=== PATIENT | male | born 1955 | race Caucasian/White ===

== ENCOUNTER → 2023-11-28 06:37 | Day surgery (SDC) | payer OTHER, SELFPAY | LOC: GI 06:37 | PROVIDERS: ATTENDING PHYSICIAN Internal Medicine | DX: Z12.11 Encounter for screening for malignant neoplasm of colon (principal); Z86.010 Personal history of colon polyps; D12.3 Benign neoplasm of transverse colon; D12.5 Benign neoplasm of sigmoid colon | CPT/HCPCS: 45385; 45380; 88305 ==

== ENCOUNTER 2024-05-17 14:22 | Observation (INO) | payer OTHER, SELFPAY ==
[2024-05-17] VITALS (7 sets, daily range): BP systolic 97–135; BP diastolic 58–87; BMI 34.8; BMI 34.3
[2024-05-17 12:09] LABS: % Basophils 0.4 % (0-2); % Eosinophils 3.7 % (0-6); % Immature Granulocytes 0.2 % (0-0.5); % Lymphocytes 24.8 % (20.5-51.1); % Monocytes 8.9 % (1.7-9.3); Absolute Eosinophils 0.2 10^3/uL (0-0.7); Absolute Lymphocytes 1.3 10^3/uL (1.2-3.4); Absolute Monocytes 0.5 10^3/uL (0.1-0.6); Absolute Neutrophils 3.4 10^3/uL (1.4-6.5); Hematocrit 40.2 % (39.0-52.0); Hemoglobin 14.4 g/dL (13.0-18.0); Mean Corp Hgb Conc. 35.8 g/dL (33.0-37.0); Mean Corpuscular Hgb 31.9 pg (27.0-31.0); Mean Corpuscular Volume 88.9 fL (80.0-94.0); Mean Platelet Volume 10.6 fL (7.4-10.4); Nucleated Red Blood Cells % 0 % (-); Platelet Count 205 10^3/uL (130-400); Red Blood Cell Count 4.52 10^6/uL (4.70-6.10); Red Cell Dist. Width 12.6 % (11.5-14.5); White Blood Cell Count 5.4 10^3/uL (4.8-10.8)
[2024-05-17 12:20] LABS: INR 1.09; PT 14.1 Sec (11.4-14.6)
--- NOTE | 2024-05-17 12:22 | ED.GENMED ---
History of Present Illness
General
Chief Complaint: Swelling
Source: patient
Time Seen by Provider: 05/17/24 11:38
History of Present Illness
History of Present Illness:
69yoM with a history of coronary artery disease, atrial fibrillation, aortic valve and root repair, hyperlipidemia, and hypothyroidism presenting for evaluation of an abnormal outpatient ultrasound. Patient has been having left arm swelling for
about a week. He was sent for an outpatient venous duplex this morning which revealed an occlusive thrombus in the mid left subclavian vein at the site of indwelling cardiac pacemaker leads. Patient was sent to the ED for evaluation. He is
otherwise asymptomatic and denies any chest pain, shortness of breath, syncope. Of note, patient was told that he could discontinue his Eliquis recently for his afib. He has been weaning himself off the afib and has been taking Eliquis 2.5mg BID.
His last dose of Eliquis was 2 days ago.
Past History
Past History
ED Past Medical History: CAD and HTN
ED Past Surgical History: Cardiac (Valve replacement, CABG) and Orthopedic
Social History
Tobacco: Other (Occasional cigarette)
Alcohol: Occasional
Personal:
Living: with family
Employment: Employed
Phy Exam
General Physical Exam
General Presentation: well appearing and no apparent distress
General age: appears stated age
General Skin: warm and dry
General Habitus: normal
General Mental: alert
Cardiovascular Exam
Cardiovascular Exam: regular rate/rhythm
Pulmonary Exam
Pulmonary Exam: lungs clear, no respiratory distress, no crackles and no wheezing
Musculoskeletal Exam
Musculoskeletal Exam: other (+LUE swelling noted. 2+ radial pulse. Motor and sensation intact. )
Skin Exam
Skin Exam: normal color and warm/dry
Psychiatric Exam
Psychiatric Exam: normal mood/affect
Scores
Heart Failure Risk
Heart Failure Risk Score: Not Applicable
Course
Orders/Labs/Results
Orders:
Orders
05/17/24 11:49
Heparin 8,800 units IV NOW STA
Nursing to Place Non Medication Order As Directed
Physician Order: PTT 6 hours after initial start of Heparin infusion
05/17/24 11:52
Complete Blood Count/With Diff Urgent
Comprehensive Metabolic Panel Urgent
PTT Urgent
Prothrombin Time Urgent
05/17/24 12:00
Heparin 17640 Units/250 ml 25,000 units in 250 ml IV PER PROTOCOL
Weight to be used for heparin protocol in kilograms (kg):: 110
Protocol:: DVT/PE
PTT Goal Range to be used:: PTT 73 to 111 seconds
Order type:: Initial
INITIAL Infusion Dose (UNITS/KG/hr) & then follow protocol:: 18 units/kg/hr
Infusion Dose in UNITS/hr & then follow protocol (UNITS/hr):: 2,000
INFUSION RATE in mL/hr & then follow protocol (mL/hr):: 20
For DVT/PE algorithm, re-bolus for low PTT?: Yes
PTT less than or equal to 64 seconds:: Re-bolus 80 units/kg (max 10,000units). Increase by 400 units/hr
(+ 4mL/hr)
PTT 64.1 to 72.9 seconds:: Re-bolus 40 units/kg (max 5,000 units). Increase by 200 units/hr
(+ 2mL/hr)
PTT 73 to 111 seconds:: Target Range. No change in rate.
PTT 111.1 to 130.9 seconds:: Decrease rate by 200 units/hr (- 2 mL/hr)
PTT 131 to 199.9 seconds:: HOLD for 1 hr. Then decrease by 300 units/hr (- 3mL/hr)
PTT greater than or equal to 200 seconds:: HOLD for 2 hrs & Notify Provider. Then decrease by 400 units/hr
(- 4mL/hr)
Lab follow-up:: Each change, PTT q6h until 2 consecutive are therapeutic. Then
PTT daily.
05/17/24 12:32
Heparin 8,800 units IV PRN PRN
05/17/24 12:33
Heparin 4,400 units IV PRN PRN
05/17/24 13:52
Apixaban [Eliquis] 10 mg PO ONCE ONE
05/17/24 14:12
Admit/Transfer Patient As Directed
Co-Sign Provider:
Level of Care: Observation services
Assign to:: Telemetry
Physician / Group: Jan Galvin
Diagnosis: Left subclavain vein thrombus
Reason for Telemetry: Pacer lead- non dependent
Date to Stop Telemetry: 05/19/24
Time to Stop Telemetry: 11:00
Reason for Hospitalization: Left subclavain vein thrombus
PRN Pain Medication Management As Directed
May give lesser potent ordered pain med per pt: Yes
preference::
Protocol:: Medication orders for pain may be administered in a
manner that supports deferring to patient preference
when the pt is:
- Requesting an ordered lesser potent pain medication.
Least to most potent pain medications are defined
as: acetaminophen < NSAID < tramadol < opioids
(morphine, oxycodone, hydromorphone).
- Requesting a lesser dose of the same medication IF
ORDERED.
- Requesting a less intrusive route of administration
if both routes are prescribed by the provider (PO <
IV).
05/17/24 14:14
Code Status As Directed
Resuscitation Status: Full Code
05/17/24 20:00
Apixaban [Eliquis] 10 mg PO BID
05/19/24 11:00
DC Protocol for Telemetry ONCE
Abnormal Lab Results
05/17/24
11:52
RBC 4.52 L 10^6/uL
(4.70-6.10)
MCH 31.9 H pg
(27.0-31.0)
MPV 10.6 H fL
(7.4-10.4)
Glucose 108 H mg/dl
(70-99)
05/17/24 11:52
05/17/24 11:52
Vital Signs
Initial and Last Documented VS:
Initial Vital Signs
Temp Pulse Resp BP Pulse Ox
98.3 F 65 18 130/87 97
05/17/24 11:20 05/17/24 11:20 05/17/24 11:20 05/17/24 11:20 05/17/24 11:20
Last Documented Vital Signs
Temp Pulse Resp BP Pulse Ox
98.3 F 87 32 115/83 96
05/17/24 11:20 05/17/24 14:00 05/17/24 14:00 05/17/24 14:00 05/17/24 14:00
MDM/Problems Addressed
Differential Diagnosis Includes:
69yoM here for a subclavian thrombus seen on outpatient vascular ultrasound. Has been having L arm swelling x 1 week. Recently stopped Eliquis. He is afebrile and hemodynamically stable. He is well appearing in no distress. Left arm edema noted on
exam. Differential diagnosis includes but is not limited to: DVT, failure of Eliquis
Initial ED plan: Check CBC, CMP, coags. Will initiate on a heparin gtt.
*Critical Care Note
Total Time (30-74mins, 75-104mins- exclusive of procedures): Not Applicable
Update Note
Update Note:
I discussed case with hospitalist to admit patient. Hospitalist requesting cardiology consult. Patient evaluated by parts professional at bedside, Dr. Luz, who recommends transitioning to PO Eliquis 10mg BID. Patient admitted for further management.
ED Attending Note
-
Portions of this chart may have been created with voice recognition software.� Occasional wrong word or��sound alike� substitutions may have occurred due to the inherent limitations of voice recognition software.
Discharge Plan
Departure
Patient Disposition: Admit
Date of Disposition: 05/17/24
Time of Disposition: 12:27
Presentation/result/management discussed w/ accepting MD/DO: Hospitalist
Discharge Problem:
Acute thrombosis of left subclavian vein
Interventions
Interventions:
*Risk Screen - Suicide Last Done: 05/17/24 11:20
*General Assessment Last Done: 05/17/24 11:20
*Neglect/Abuse Screening Last Done: 05/17/24 11:20
ED- Fall Risk Assessment Last Done: 05/17/24 11:44
*ED COVID-19 Vaccine History Last Done: 05/17/24 11:40
ED- Cardiac Assessment Last Done: 05/17/24 11:40
ED- Pulmonary Assessment Last Done: 05/17/24 11:40
ED-Skin Assessment Last Done: 05/17/24 11:40
[2024-05-17 12:33] LABS: ALT (SGPT) 29 U/L (0-50); AST (SGOT) 27 U/L (17-59); Albumin 4.3 g/dl (3.5-5.0); Alkaline Phosphatase 69 U/L (38-126); Blood Urea Nitrogen 17 mg/dl (9-20); Calcium 8.8 mg/dl (8.4-10.2); Carbon Dioxide 23 mmol/L (22-30); Chloride 103 mmol/L (98-107); Estimated Creatinine Clearance 71 ml/min; Glucose 108 mg/dl (70-99); Potassium 4.2 mmol/L (3.5-5.1); Sodium 139 mmol/L (135-145); Total Bilirubin 0.6 mg/dl (0.2-1.3); Total Protein 6.7 g/dl (6.3-8.2); eGFR > 60.00
[2024-05-17] MEDS: HEPARIN 8800 UNITS IV (12:39)
[2024-05-17] MEDS: HEPARIN 25000 UNITS/250 ML IV (12:40)
[2024-05-17] MEDS: ELIQUIS 10 MG PO ×2 (13:56→20:52)
--- NOTE | 2024-05-17 14:14 | CON.CAR ---
Consultation
Consultation Request
Date/Time Consultation Requested: 05/17/24, 1230pm
Date/Time Consultation Performed: 05/17/24, 1pm
Requesting Provider: Rohini
Performing Provider: Sukh
Reason for Consultation: DVT
Medical History
-
Chief Complaint: left arm edema
History of Present Illness:
69 yo male with PMH of CAD, aortic valve stenosis, s/p CABG/AVR/root 2006, then redo bio-AVR 2021 for severe AR of bioprosthetic valve, post op A fib (paroxysmal), then post op PPM, HTN, hyperlipidemia presents to ED with left arm swelling since
evening. 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 He started taking 2.5mg bid for the last 40 days then stopped it a couple days ago.
No chest pain, SOB, syncope, dizziness.
At urgent care, he underwent Doppler, which showed occlusive thrombus of mid left subclavian vein at the site of indwelling cardiac pacemaker leads.
Past Medical History
Past Medical History: Arrhythmias (paroxysmal Afib), CAD, HTN, Hypercholesterolemia, Hypothyroidism and Valvular Disease (aortic)
Past Surgical History: Cardiac (CABG/AVR/aortic root 2006; then redo bio-AVR 2021 (Dr Abran Lezama))
Social History
Tobacco: Former Smoker (quit 2004)
Living: With Family
Family History
Family History: Early CAD (none)
Allergies / Home Medications
Allergy/AdvReac Type Severity Reaction Status Date / Time
acetaminophen [From Percocet] Allergy Itching Verified 02/13/22 02:43
oxycodone [From Percocet] Allergy Itching Verified 02/13/22 02:43
�Medication �Instructions �Recorded �Confirmed �Type
bimatoprost 0.01 % eye drops 1 drp BOTH EYES HS Eye condition 02/13/22 05/17/24 History
(Vielka) ##0
brimonidine 0.1 % eye drops 1 drp BOTH EYES BID Eye condition 02/13/22 05/17/24 History
(Alphagan P) ##0
ezetimibe 10 mg tablet (Zetia) 10 mg PO HS High cholesterol 02/13/22 05/17/24 History
levothyroxine 25 mcg tablet 37.5 mcg PO DAILY Thyroid 02/13/22 05/17/24 History
furosemide 40 mg tablet 40 mg PO DAILY #30 tabs 02/16/22 05/17/24 Rx
ascorbic acid (vitamin C) 500 mg 500 mg PO DAILY 05/17/24 05/17/24 History
tablet (Vitamin C)
aspirin 325 mg tablet 325 mg PO BID 05/17/24 05/17/24 History
dorzolamide 22.3 mg-timolol 6.8 1 drp BOTH EYES BID 05/17/24 05/17/24 History
mg/mL eye drops
ibuprofen 200 mg tablet (Advil) 400 mg PO Q6HPRN PRN mild pain 05/17/24 05/17/24 History
rosuvastatin 10 mg tablet 10 mg PO HS 05/17/24 05/17/24 History
valsartan 40 mg tablet 40 mg PO QPM 05/17/24 05/17/24 History
Review of Systems
-
All other systems: Negative unless noted
Musculoskeletal: Edema (LUE)
Physical Exam
Vital Signs
Temp Pulse Resp BP Pulse Ox
98.3 F 87 32 115/83 96
05/17/24 11:20 05/17/24 14:00 05/17/24 14:00 05/17/24 14:00 05/17/24 14:00
Lab Results
05/17/24 11:52
05/17/24 11:52
Physical Exam
General: Well Developed, Well Nourished and No Apparent Distress
HEENT: Normocephalic and Anicteric
Respiratory: Clear and Non Labored Respirations
Cardiac: S1/S2 (normal), Regular Rhythm, Murmur (none), Peripheral Edema (1+ LUE) and JVD (none)
GI: Soft, Non Tender and Non Distended
Musculoskeletal: No Clubbing, No Cyanosis and Edema (1+ LUE)
Skin: Warm and Dry
Neuro: AO x 3
Psych: Calm
Impression / Plan
-
69 yo male with PMH of CAD, aortic valve stenosis, s/p CABG/AVR/root 2006, then redo bio-AVR 2021 for severe AR of bioprosthetic valve, post op A fib (paroxysmal), then post op PPM, HTN, hyperlipidemia presents to ED with left arm swelling since
evening. 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 He started taking 2.5mg bid for the last 40 days then stopped it a couple days ago.
At urgent care, he underwent Doppler, which showed occlusive thrombus of mid left subclavian vein at the site of indwelling cardiac pacemaker wires.
# LUE DVT, acute, associated with PPM wires
-discussed with EP
-transition heparin drip to eliquis 10mg bid for 7 days, then 5mg bid after
-can stop ASA
-EKG, echo
-observe for improvement of symptoms
# CAD/CABG: chronic, stable
# bio-AVR x2: chronic, stable
# HTN: chronic, stable; continue ARB
# Hyperlipidemia: chronic, stable; continue statin
Data Reviewed
-
Ultrasound: Report Reviewed by me (LUE DVT)
Labs: Labs Reviewed by me
--- NOTE | 2024-05-17 14:22 | HPS.HSE ---
Family Physician
-
Family Physician: Hubert Smith
Chief Complaint
-
left arm swelling/pain
History of Present Illness
Patient is a 69-year-old male with past medical history of coronary disease with CABG x 2, post op afib, history of bicuspid aortic valve/aortic stenosis post bioprosthetic aortic valve replacement, hyperlipidemia, hypothyroidism, obesity, history
of right rotator cuff injury, former smoker came to ER for having new onset of left arm pain and swelling. This started approximately 1 week back and slowly progressed over last few days. Patient had an outpatient ultrasound done of left upper
extremity which showed a small segment of subclavian vein clot where pacemaker wire was present. Patient came to ER for further evaluation of this.
Patient denies having any associated chest discomfort/shortness of breath/palpitations/presyncops.Denies having a previous history of DVT or PE. Patient has history of post cardiac surgery A-fib for which patient was maintained on Eliquis and which
has been stopped approximately 1 month back by primary [facility] CTS. patient was in process of weaning himself off of Eliquis and transitioning to aspirin.
No abominal/ complains.
Medical History
Past Medical History
Past Medical History: Reports Other
Additional Past Medical History:
coronary disease with CABG x 2, post op afib, history of bicuspid aortic valve/aortic stenosis post bioprosthetic aortic valve replacement, hyperlipidemia, hypothyroidism, obesity, history of right rotator cuff injury, former smoker
Past Surgical History: Reports Other
Social History
Tobacco: Former Smoker
Alcohol: Occasional
Drug: None
Personal:
Living: With Family
Family History
Family History: Not pertinent
Allergies / Home Medications
Allergies reflects when Allergies were last updated in [employer].
Home Medications with original date entered in [employer]
Allergy/Medication List:
Allergies
Allergy/AdvReac Type Severity Reaction Status Date / Time
acetaminophen [From Percocet] Allergy Itching Verified 02/13/22 02:43
oxycodone [From Percocet] Allergy Itching Verified 02/13/22 02:43
Home Medications
bimatoprost 0.01 % eye drops (Lumigan) 1 drp BOTH EYES HS Eye condition ##0 02/13/22
brimonidine 0.1 % eye drops (Alphagan P) 1 drp BOTH EYES BID Eye condition ##0 02/13/22
ezetimibe 10 mg tablet (Zetia) 10 mg PO HS High cholesterol 02/13/22
levothyroxine 25 mcg tablet 37.5 mcg PO DAILY Thyroid 02/13/22
furosemide 40 mg tablet 40 mg PO DAILY #30 tabs 02/16/22
ascorbic acid (vitamin C) 500 mg tablet (Vitamin C) 500 mg PO DAILY 05/17/24
aspirin 325 mg tablet 325 mg PO BID 05/17/24
dorzolamide 22.3 mg-timolol 6.8 mg/mL eye drops 1 drp BOTH EYES BID 05/17/24
ibuprofen 200 mg tablet (Advil) 400 mg PO Q6HPRN PRN mild pain 05/17/24
rosuvastatin 10 mg tablet 10 mg PO HS 05/17/24
valsartan 40 mg tablet 40 mg PO QPM 05/17/24
Review of Systems
-
A 12 point ROS was completed and negative except as noted: Yes
Physical Exam
Vital Signs
Vital Signs
Temp Pulse Resp BP Pulse Ox
98.3 F 87 32 115/83 96
05/17/24 11:20 05/17/24 14:00 05/17/24 14:00 05/17/24 14:00 05/17/24 14:00
Physical Exam
General: Well Developed, Well Nourished and No Apparent Distress
HEENT: NormoCephalic, Moist mucous membranes and Atraumatic
Respiratory: Clear
Cardiac: S1/S2 and Regular Rhythm; No Murmur or Rub
GI: Soft, Non Tender, Non Distended and Normal Bowel Sounds; No Organomegaly
Rectal: Deferred by Provider
Musculoskeletal: No Clubbing, No Cyanosis, No Edema and Other (Left upper ext swelling )
Skin: No Rash
Neuro: Nonfocal/grossly intact
Laboratory Results
-
05/17/24 11:52
05/17/24 11:52
Laboratory Results
PT 14.1 Sec (11.4-14.6) 05/17/24 11:52
INR 1.09 05/17/24 11:52
APTT 31.0 Sec (23.4-35.0) 05/17/24 11:52
Total Bilirubin 0.6 mg/dl (0.2-1.3) 05/17/24 11:52
AST 27 U/L (17-59) 05/17/24 11:52
ALT 29 U/L (0-50) 05/17/24 11:52
Alkaline Phosphatase 69 U/L (38-126) 05/17/24 11:52
Data Reviewed
-
Diagnostic Radiology: Image Personally Visualized and interpreted, Discussed with Patient and Discussed with Family
Lab Data: Labs Reviewed by me, Discussed with Patient and Discussed with Family
Impression/Plan
-
1. Left subclavian thrombus at pacemaker wire site
-Patient had left upper extremity ultrasound showing small segment of subclavian vein occlusive thrombus her cardiac pacemaker lead wires were seen.
-Patient weaned himself off of Eliquis after discussion with cardiothoracic surgeon at [facility]
-Cardiology evaluated patient in ER and will be started back on loading dose of Eliquis
-Heparin drip to be discontinued
-Patient will have repeat echocardiogram tomorrow
-Monitor overnight on telemetry
2. Post-op Afib
-Patient had post bypass brief run of A-fib
-Currently pacer dependent
3. Hypothyroidism
-Continue levothyroxine
coronary disease with CABG x 2
history of bicuspid aortic valve/aortic stenosis post bioprosthetic aortic valve replacement
hyperlipidemia
obesity
history of right rotator cuff injury
Former smoker
DVT PPX - eliquis
Full code
Total time spent : 77 mins
I personally saw and examined the patient.
I have reviewed all diagnostic interpretations and treatment plans as written.
Time includes patient management by me, time spent at the patients bedside, time to review lab and imaging results, discussing patient care, documentation in the medical record, and time spent with the family or caregiver and discussing care plan
with RN/Consultants.
[2024-05-17] MEDS: DIOVAN 40 MG PO (17:18)
[2024-05-17] MEDS: ZETIA 10 MG PO (20:52)
[2024-05-17] MEDS: CRESTOR 10 MG PO (20:52)
[2024-05-17] MEDS: NON-FORMULARY ITEM 1 DROP BOTH EYES ×2 (20:53)
[2024-05-18 03:00] VITALS: BP 120/70
[2024-05-18] MEDS: SYNTHROID 37.5 MCG PO (05:44)
[2024-05-18 06:00] VITALS: BMI 33.9
[2024-05-18 07:45] VITALS: BP 119/73
--- NOTE | 2024-05-18 08:24 | W.PN.CD ---
Today's Communication / Plan
-
continue eliquis 10mg bid for 7 days, then 5mg bid after
[facility] EP will call him for follow up
Impression / Plan
-
69 yo male with PMH of CAD, aortic valve stenosis, s/p CABG/AVR/root 2006, then redo bio-AVR 2021 for severe AR of bioprosthetic valve, post op A fib (paroxysmal), then post op PPM, HTN, hyperlipidemia presents to ED with left arm swelling since
evening. 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 He started taking 2.5mg bid for the last 40 days then stopped it a couple days ago.
At urgent care, he underwent Doppler, which showed occlusive thrombus of mid left subclavian vein at the site of indwelling cardiac pacemaker wires.
# LUE DVT, acute, associated with PPM wires
-discussed with EP here and at [facility], where his device is managed
-continue eliquis 10mg bid for 7 days, then 5mg bid after
-echo and device check are normal
-[facility] EP will call him for follow up
# CAD/CABG: chronic, stable
# bio-AVR x2: chronic, stable
# HTN: chronic, stable; continue ARB
# Hyperlipidemia: chronic, stable; continue statin
Physical Exam
Vital Signs/Labs
Vital Signs
Temp Pulse Resp BP Pulse Ox
98 F 57 18 119/73 97
05/18/24 07:45 05/18/24 07:45 05/18/24 07:45 05/18/24 07:45 05/18/24 07:45
05/17/24 05/18/24 05/19/24
06:59 06:59 06:59
Actual Weight 107.048 kg
PT 14.1 Sec (11.4-14.6) 05/17/24 11:52
INR 1.09 05/17/24 11:52
APTT 31.0 Sec (23.4-35.0) 05/17/24 11:52
Physical Exam
Constitutional: No acute distress and Comfortable
EENT: Moist mucous membranes
Cardiovascular: Rhythm & rate is regular, Pedal edema is absent, JVD pressure is normal and Systolic murmur absent
Respiratory: Respiratory effort normal and Lungs clear to auscul.
GI: Soft, Distention absent and Flat
Neuro/Psych: AO x 3
Data Reviewed
-
Date of Service: May 18, 2024
EKG: Ordered by me and Other (tele: occasional A paced, V sense; PVC's)
Echo: Report Reviewed by me
Labs: Labs Reviewed by me
--- NOTE | 2024-05-18 08:36 | W.PN.HOSP.TC ---
Today's Communication/Plan
-
d/c home
Assessment / Plan
Assessment / Plan
1. Left subclavian thrombus at pacemaker wire site
-Patient had left upper extremity ultrasound showing small segment of subclavian vein occlusive thrombus her cardiac pacemaker lead wires were seen.
-Patient weaned himself off of Eliquis after discussion with cardiothoracic surgeon at [facility]
-Repeat echocardiogram did not show any acute abnormality.
-Patient will be transition to oral Eliquis therapy.
-Patient cleared by cardio for discharge, follow-up with [facility] promotion writer postdischarge
2. Post-op Afib
-Patient had post bypass brief run of A-fib
-Currently pacer dependent
3. Hypothyroidism
-Continue levothyroxine
coronary disease with CABG x 2
history of bicuspid aortic valve/aortic stenosis post bioprosthetic aortic valve replacement
hyperlipidemia
obesity
history of right rotator cuff injury
Former smoker
DVT PPX - eliquis
Full code
More than 30 minutes spent in discharge including
Final examination of the patient
Summarizing hospital stay
Instructions for continuing care to all relevant caregivers
Preparation of discharge records, prescriptions, and referral forms
Total time spent (in minutes): 38 mins
Anticipated Discharge: Today
Subjective/Interval History
-
Date of Service: May 18, 2024
resting comfortably
no complains overnight
Objective Data
-
Labs:
Laboratory Results
05/18/24
06:00
WBC Pending
Hgb Pending
Hct Pending
Plt Count Pending
Sodium Pending
Potassium Pending
Chloride Pending
Carbon Dioxide Pending
BUN Pending
Creatinine Pending
Glucose Pending
Calcium Pending
Vital Signs:
Vital Signs
Temp Pulse Resp BP Pulse Ox
98 F 57 18 119/73 97
05/18/24 07:45 05/18/24 07:45 05/18/24 07:45 05/18/24 07:45 05/18/24 07:45
Review of Systems
-
Respiratory: Reports No Symptoms
Cardiac: Reports No Symptoms
Abdomen/GI: Reports No Symptoms
Physical Exam
-
General: No Apparent Distress and Comfortable
HEENT: Negative Oxygen
Respiratory: Clear to Auscultation
Cardiac: Regular Rhythm and S1/S2; Negative Murmur or Rub
GI: Soft, Nontender, Nondistended and Normal Bowel Sounds
Musculoskeletal: No Edema
Neuro: Awake, Alert, Oriented, No Motor Deficits and Nonfocal/Grossly Intact
Psych: Calm
[2024-05-18] MEDS: VITAMIN C 500 MG PO (09:10)
[2024-05-18] MEDS: LASIX 40 MG PO (09:10)
[2024-05-18] MEDS: NON-FORMULARY ITEM 1 DROP BOTH EYES (09:10)
[2024-05-18] MEDS: ELIQUIS 10 MG PO (09:10)
--- NOTE | 2024-05-18 09:44 | CM ---
Patient seen, patient for discharge today. Patient confirms he resides with his in a two story home, no steps to enter. Patient denies DME, VN, or SNF history. Patient PCP Franklyn Segal, [facility] in [place]. Patient confirms prescription
coverage. Patient denies any needs upon discharge, reports his will provide transportation home. KRAUS reviewed, signed, placed in chart. CM will continue to follow for all discharge planning needs.
Plan; home no needs, to transport home.
[2024-05-18 09:49] LABS: Hematocrit 44.2 % (39.0-52.0); Hemoglobin 15.5 g/dL (13.0-18.0); Mean Corp Hgb Conc. 35.1 g/dL (33.0-37.0); Mean Corpuscular Hgb 32.7 pg (27.0-31.0); Mean Corpuscular Volume 93.2 fL (80.0-94.0); Mean Platelet Volume 10.9 fL (7.4-10.4); Platelet Count 190 10^3/uL (130-400); Red Blood Cell Count 4.74 10^6/uL (4.70-6.10); Red Cell Dist. Width 12.6 % (11.5-14.5); White Blood Cell Count 5.2 10^3/uL (4.8-10.8)
[2024-05-18 10:28] LABS: Blood Urea Nitrogen 15 mg/dl (9-20); Calcium 9.1 mg/dl (8.4-10.2); Carbon Dioxide 29 mmol/L (22-30); Chloride 102 mmol/L (98-107); Estimated Creatinine Clearance 70 ml/min; Glucose 127 mg/dl (70-99); Potassium 4.5 mmol/L (3.5-5.1); Sodium 143 mmol/L (135-145); eGFR > 60.00
--- NOTE | 2024-05-18 14:14 | W.DCSUMMARY ---
Discharge Summary
Discharge Data
Date of Admission: 05/17/24
Date of Discharge: 05/18/24
-
Pending Results: No
Hospital Course
Discharging Physician : Dr Jan Galvin
Disposition : Home
Primary care physician : Dr Hubert Smith
Principal Discharge diagnosis :
Left subclavian vein thrombus
Chronic Discharge diagnosis :
Postoperative A-fib
Hypothyroidism
Coronary artery disease with history bypass
Hyperlipidemia
History of bicuspid aortic valve/aortic stenosis post bioprosthetic aortic valve replacement
Obesity
History of right rotator cuff injury
Former smoker
Hospital Course :
Patient is a 69-year-old male with a past medical history was sent to ER after found to having left subclavian vein short segment thrombus. Patient was not Eliquis with history of postop A-fib in the past and was taken off with primary cardiology.
Patient started to noticing new left upper extremity swelling and had an outpatient ultrasound on the day of ER visit showing a new left subclavian vein thrombus. Pacemaker wire were juxtapositioned. Patient was alerted by cardiology and was
planned to be monitored overnight. Patient was started back on oral Eliquis loading. Follow-up echocardiogram did not show any acute abnormality. Patient was discharged to home at this point with plan to follow-up with primary cardiology at [facility].
Important imaging findings :
None
Procedure findings :
None
Discharge Plan
-
Patient Disposition: Home (Routine Discharge)
Discharge Diagnosis/Procedures: Left subclavian vein clot
Condition: Fair
Diet: Regular
Activity: As tolerated
Driving Restrictions: No driving for 24 hours
Bathing Restrictions: OK to Shower
Activity Restrictions/Additional Instructions:
Please follow up with your EP medicare interviewer at [facility].
Referrals:
Hubert Smith, DO [Family Provider] - in one week
Additional Discharge Medication Instructions: STOP aspirin, Avoid NSAID use as have increased bleeding risk with eliquis use.
Prescriptions:
New
Eliquis 5 mg tablet
See Rx Instructions .ROUTE .COMPLEX Qty: 70 0RF
Rx Instructions:
Take 2 Tablet Twice daily for 6 Days THEN
Take 1 Table Twice daily for maintenance
1st month supply
Eliquis 5 mg tablet
5 mg PO BID Qty: 60 1RF
Rx Instructions:
2nd month supply
Continued
levothyroxine 25 MCG tablet
37.5 mcg PO DAILY
brimonidine [Alphagan P] 0.1 % Drops
1 drp BOTH EYES BID Qty: 0
Lumigan 0.01 % Drops
1 drp BOTH EYES HS Qty: 0
ezetimibe [Zetia] 10 MG tablet
10 mg PO HS
furosemide 40 MG tablet
40 mg PO DAILY Qty: 30 0RF
dorzolamide-timolol 22.3-6.8 mg/mL Drops
1 drp BOTH EYES BID
ascorbic acid (vitamin C) [Vitamin C] 500 mg Tablet
500 mg PO DAILY
valsartan 40 mg Tablet
40 mg PO QPM
rosuvastatin 10 mg Tablet
10 mg PO HS
Discontinued
aspirin 325 mg Tablet
325 mg PO BID
ibuprofen [Advil] 200 mg Tablet
400 mg PO Q6HPRN PRN (Reason: mild pain)
Discharge Orders:
Discharge Patient (As Directed); Ordered 05/18/24
Ordered By: Jan Galvin
Discharge Date and Time
Discharge Date/Time: 05/18/24 10:01
Print Language: TRISTANIAN
== END 2024-05-18 10:01 | disposition home or self-care (01) ==
LOC: 4 EAST ACU 14:22
PROVIDERS: Physician Assistant; ADMITTING PHYSICIAN Hospitalist; CONSULT PHYSICIAN Internal Medicine; EMERGENCY PHYSICIAN Student in an Organized Health Care Education/Training Program; FAMILY PHYSICIAN Family Medicine
DX: I82.B12 Acute embolism and thrombosis of left subclavian vein (principal); R60.9 Edema, unspecified; I25.10 Atherosclerotic heart disease of native coronary artery without angina pectoris; I48.0 Paroxysmal atrial fibrillation; E78.00 Pure hypercholesterolemia, unspecified; E66.9 Obesity, unspecified; E03.9 Hypothyroidism, unspecified; I35.0 Nonrheumatic aortic (valve) stenosis; I10 Essential (primary) hypertension; Z95.1 Presence of aortocoronary bypass graft; Z95.3 Presence of xenogenic heart valve; Z79.01 Long term (current) use of anticoagulants; Z87.891 Personal history of nicotine dependence; Z88.5 Allergy status to narcotic agent; Z79.82 Long term (current) use of aspirin; Z79.890 Hormone replacement therapy; Z95.0 Presence of cardiac pacemaker; Z68.33 Body mass index [BMI] 33.0-33.9, adult
CPT/HCPCS: 80048; 80053; 85025; 85027; 85610; 85730; 93306; 96365; 96366; 99284; G0378

== ENCOUNTER 2025-05-21 11:23 | Emergency (ER) | payer OTHER, SELFPAY ==
[2025-05-21 11:26] VITALS: BP 145/92
--- NOTE | 2025-05-21 11:34 | ED.GENMED ---
History of Present Illness
General
Chief Complaint: DVT/Possible Blood Clot
Time Seen by Provider: 05/21/25 11:34
History of Present Illness
History of Present Illness:
PAST MEDICAL HISTORY AND REVIEW OF OLD RECORDS
- The patient has a history of CAD, has pacemaker, has not had DVT in the past. He also has a history of postop A-fib in the past. In April of last year, the patient was admitted with left subclavian vein thrombus
Note:
CHIEF COMPLAINT(S)
Swelling in the left arm, history of deep vein thrombosis in the subclavian vein.
HISTORY OF PRESENT ILLNESS
The patient is a 70-year-old male with a history of a blood clot in the subclavian vein noted last year, who presents for evaluation of swelling in the left arm. The patient reports that the swelling is not as severe as it was during the previous
incident because he presented to the clinic two weeks earlier than last year. At that time, the swelling was substantial enough that veins were not visible, and the patient also noted a weight gain of about four pounds in a couple of days, which
concerned him regarding possible fluid retention. The patient was prescribed the anticoagulant apixaban (Eliquis), taking 5 mg doses, and confirms compliance with the medication regimen without any missed doses. The patient expressed some concern
about being on a blood thinner, referencing past behavior of self-adjusting doses before being advised against such changes. There was no reported shortness of breath or swelling of the legs. However, the patient noted numbness in the shoulder area,
which led to a brief examination by palpation and testing of muscle strength. The patients strength and sensation were found to be intact. The patient has a pacemaker, and the previous clot was near this device. Previous intervention details were
not on hand during the encounter.
EXTERNAL RECORDS REVIEWED
There was no ultrasound report available from the previous year�s records.
CHRONIC MEDICAL CONDITIONS SIGNIFICANTLY AFFECTING CARE
History of a blood clot in the subclavian vein.
MEDICATIONS
The patient is currently taking apixaban (Eliquis) 5 mg.
REVIEW OF SYSTEMS
- Vasculature: Swelling in left arm with resolved or reduced visibility of veins.
- Neurological: Reports numbness in the shoulder, but strength and sensation intact on examination.
- Respiratory System: No reported difficulty in breathing.
- Cardiovascular: No swelling of the legs noted.
PHYSICAL EXAM
General: Alert, no acute distress.
Skin: Warm, dry.
Head: Normocephalic, atraumatic.
Neck: Supple, trachea midline.
Eye, Ears, Nose, Mouth, and Throat: Oral mucosa moist.
Cardiovascular: Normal peripheral perfusion, No edema.
Respiratory: Respirations are non-labored.
Gastrointestinal: Abdomen nondistended.
Back: Normal range of motion, Normal alignment.
Musculoskeletal: Normal range of motion, normal strength. There is trace if any left upper extremity edema that the patient notices more near the wrist
Neurological: Alert and oriented to person, place, time, and situation, No focal neurological deficit observed. Excellent sensation and strength in the upper extremities
Psychiatric: Cooperative, appropriate mood & affect.
PLAN
An ultrasound of the left arm will be performed to assess for possible recurrence of venous thrombosis, given the patients history and current presentation.
DIFFERENTIAL DIAGNOSIS
The Differential Diagnosis includes, in no particular order and is not limited to:
1. Recurrent Deep Vein Thrombosis
2. Lymphedema
3. Cellulitis
4. Heart Failure
5. Venous Insufficiency
6. Subclavian Vein Obstruction
7. Drug-Induced Edema
8. Hypoalbuminemia
9. Neuropathy
10. Localized Infection (e.g., due to pacemaker)
RADIOLOGY
- Ultrasound imaging obtained which was negative for DVT
SUMMARY OF ENCOUNTER
The patient presented to the emergency department with swelling in the left arm and a history of deep vein thrombosis in the subclavian vein. An ultrasound was performed to evaluate for possible recurrent venous thrombosis. The ultrasound was
negative for DVT. The patient was reassured given the low suspicion for any critical etiology and minimal findings upon physical examination. The patient was advised to continue with his current outpatient medication regimen.
PLAN
The patient is advised to continue taking apixaban as prescribed.
PATIENT EDUCATION AND COUNSELING
The patient was informed of the negative ultrasound findings and reassured that there is a low suspicion of serious conditions. The importance of compliance with the blood thinner medication regimen was reinforced, and the patient was advised not to
adjust doses without medical consultation.
FOLLOW-UP INSTRUCTIONS
The patient should follow up with their primary care provider or specialist as needed.
MEDICATION RECONCILIATION
The patient is to continue taking apixaban (Eliquis) as part of their outpatient treatment plan.
MEDICAL DECISION MAKING
-Complexity of Data Reviewed: Chronic conditions affecting care include history of deep vein thrombosis in the subclavian vein.
-Data:
Category 1
The ultrasound of the left arm was independently reviewed, confirming a negative result for DVT.
-Risk:
Consideration of Admission/Observation: Escalation of care including admission/observation was considered given the complexity and risk of the patients presenting complaint, exam findings, and/or their underlying comorbidities. However, ultimately I
feel the patient is safe for outpatient management with close follow-up. Reasoning: Work-up reassuring, does not reveal any acute life/organ threatening processes, patients symptoms well controlled upon reevaluation, reexamination is reassuring,
vitals are stable, patient agreeable with discharge, reliable for follow-up.
DIAGNOSIS
1. Swelling of limb, R60.0
2. History of venous thrombosis, Z86.718
3. Current use of anticoagulants, Z79.01
Past History
Past History
ED Past Medical History: CAD and HTN
ED Past Surgical History: Cardiac (Valve replacement, CABG) and Orthopedic
Social History
Tobacco: Other (Occasional cigarette)
Alcohol: Occasional
Personal:
Living: with family
Employment: Employed
Phy Exam
Physical Exam
Physical Exam:
See HPI
Course
Orders/Labs/Results
Orders:
Orders
05/21/25 11:41
Periph Venous Upr Ext Left US [US Periph Venous UPPER Ext LT] Urgent
Comment:
Reason For Exam: left swelling; prior subclav V DVT; pacer
Vital Signs
Initial and Last Documented VS:
Initial Vital Signs
Temp Pulse Resp BP Pulse Ox
36.6 C 85 18 145/92 99
05/21/25 11:26 05/21/25 11:26 05/21/25 11:26 05/21/25 11:05/21/25 11:26
Last Documented Vital Signs
Temp Pulse Resp BP Pulse Ox
36.6 C 83 18 114/70 99
05/21/25 11:26 05/21/25 12:36 05/21/25 11:26 05/21/25 12:36 05/21/25 12:36
*Pulse Oximetry
SaO2: 99
Oxygen Mode of Delivery: Room air
Patient hypoxic: no
*Critical Care Note
Total Time (30-74mins, 75-104mins- exclusive of procedures): Not Applicable
ED Attending Note
-
Portions of this chart may have been created with voice recognition software.� Occasional wrong word or��sound alike� substitutions may have occurred due to the inherent limitations of voice recognition software.
Discharge Plan
Departure
Patient Disposition: Home (Routine Discharge)
Date of Disposition: 05/21/25
Time of Disposition: 14:27
Patient with high blood pressure during this ER visit?: Yes
Discharge Problem:
Swelling
Instructions: Swelling
Prescriptions:
No Action
levothyroxine 25 MCG tablet
37.5 mcg PO DAILY
brimonidine [Alphagan P] 0.1 % Drops
1 drp BOTH EYES BID Qty: 0
Lumigan 0.01 % Drops
1 drp BOTH EYES HS Qty: 0
ezetimibe [Zetia] 10 MG tablet
10 mg PO HS
furosemide 40 MG tablet
40 mg PO DAILY Qty: 30 0RF
dorzolamide-timolol 22.3-6.8 mg/mL Drops
1 drp BOTH EYES BID
ascorbic acid (vitamin C) [Vitamin C] 500 mg Tablet
500 mg PO DAILY
valsartan 40 mg Tablet
40 mg PO QPM
rosuvastatin 10 mg Tablet
10 mg PO HS
Eliquis 5 mg tablet
See Rx Instructions .ROUTE .COMPLEX Qty: 70 0RF
Rx Instructions:
Take 2 Tablet Twice daily for 6 Days THEN
Take 1 Table Twice daily for maintenance
1st month supply
Eliquis 5 mg tablet
5 mg PO BID Qty: 60 1RF
Rx Instructions:
2nd month supply
Referrals:
UNKNOWN - PT DOES,NOT KNOW [Family Provider]
Activity Restrictions/Additional Instructions:
An ultrasound was obtained today to evaluate for DVT. Continue Eliquis. Return here if worse or other concerns.
Interventions
Interventions:
*Risk Screen - Suicide Last Done: 05/21/25 11:26
*General Assessment Last Done: 05/21/25 12:34
*Neglect/Abuse Screening Last Done: 05/21/25 11:36
*ED- Fall Risk Assessment Last Done: 05/21/25 11:34
*ED COVID-19 Vaccine History Last Done: 05/21/25 11:36
*Nursing Disposition Last Done: 05/21/25 14:48
ED- Cardiac Assessment Last Done: 05/21/25 11:34
ED- Pulmonary Assessment Last Done: 05/21/25 11:34
ED-Peripheral Vascular Assessment Last Done: 05/21/25 11:34
ED-Skin Assessment Last Done: 05/21/25 11:34
Discharge Date and Time
Discharge Date/Time: 05/21/25 14:48
Print Language: GREEK
[2025-05-21 12:34] VITALS: BMI 34.3
[2025-05-21 12:36] VITALS: BP 114/70
== END 2025-05-21 14:48 | disposition home or self-care (01) ==
LOC: EMR 11:23
PROVIDERS: EMERGENCY PHYSICIAN Emergency Medicine
DX: R22.32 Localized swelling, mass and lump, left upper limb (principal); I25.810 Atherosclerosis of coronary artery bypass graft(s) without angina pectoris; I10 Essential (primary) hypertension; F17.210 Nicotine dependence, cigarettes, uncomplicated; Z79.01 Long term (current) use of anticoagulants; Z86.718 Personal history of other venous thrombosis and embolism; Z95.0 Presence of cardiac pacemaker; Z95.1 Presence of aortocoronary bypass graft; Z95.2 Presence of prosthetic heart valve
CPT/HCPCS: 99284; 93971